=== PATIENT | male | born 1985 | race Caucasian/White ===

== ENCOUNTER 2019-07-05 05:17 | Observation (INO) | payer BC ==
[2019-07-05] MEDS ORDERED: Sodium Chloride 0.9% 1,000 ML IV ONE ×2 (05:27→06:08)
[2019-07-05] MEDS ORDERED: Ketorolac 30 MG/ML SDV IVPUSH ONE (05:27)
--- NOTE | 2019-07-05 06:01 | CR ---
Indication: Shortness of breath Technique: Chest 2 views Comparison: None Findings: Cardiovascular and mediastinum: Heart size and vasculature are normal in caliber and appearance. Lungs and pleural spaces: No pleural effusion or pneumothorax. Patchy left lower lobe opacities. Bones and soft tissues: No significant findings. Impression: Patchy opacities in the left lower lobe suspicious for pneumonia. Dictated by Moise Davis MD @ Jul 05 2019 5:59AM Signed by Dr. Moise Davis @ Jul 05 2019 6:00AM
[2019-07-05 06:06] LABS: BLOOD UREA NITROGEN,BUN 12 mg/dL (7.0-18.0); CHLORIDE,CL 101 mmol/L (98-107); GLUCOSE RANDOM 137 mg/dL (74-106); LIPASE 204 U/L (73-393); POTASSIUM,K 3.6 mmol/L (3.5-5.1); SODIUM,NA 136 mmol/L (136-148)
[2019-07-05] MEDS ORDERED: cefTRIAXone 1 GM in Premix Bag 1 BAG IV ONE (06:09)
[2019-07-05] MEDS ORDERED: Azithromycin 500 MG in Sodium Chloride 0.9% 250 ML IV SCH (06:15)
[2019-07-05] MEDS ORDERED: Acetaminophen 500 MG Tab PO ONE (06:27)
--- NOTE | 2019-07-05 06:49 | EDM.PDOC ---
ED HPI GENERAL MEDICAL PROBLEM - General Chief Complaint: Respiratory Problem Stated Complaint: HARD TIME BREATHING Time Seen by Provider: 07/05/19 06:49 - History of Present Illness INITIAL COMMENTS - FREE TEXT/NARRATIVE: HPI 33-year-old male presents for evaluation of one half day of fever, chills, left sided chest discomfort, and a cough. Patient believes several days prior he had the flu as he had approximately one half days of muscle aches, fevers and chills over self limited. Patient drinks 3-4 12 ounce drinks of hard alcohol with Coke daily. Denies any prior withdraw symptoms. Takes no medications. No history of DVT, PE, estrogen usage, coughing up blood, calf tenderness, swelling , surgery, or immobilization. No recent travel, no rashes, tick bites, drinking unpurified water, no diarrhea, no dysuria, no urinary frequency, no headache, neck stiffness. M/S/F/SocHx notable for: please see HPI; remainder reviewed with patient and in chart. ROS: Negative constitutional, eye, cardiovascular, pulmonary, GI, , MSK, skin , neurologic, psychiatric, endocrine unless noted in the HPI. Exam HR 112, RR 18, BP 140/74, T 39.0C, SaO2 95% on room air. Gen: appears given age, appears moderately uncomfortable, not in extremis. HEENT: NC, AT, PEERL, EOMI, neck supple, no goiter appreciated. Resp: Clear to auscultation bilaterally, normal work of breathing, no accessory muscle usage. Card: Regular rate and rhythm with no murmurs, rubs, or gallops, extremities warm and well perfused. GI: Non-tender to palpation throughout all quadrants, no focal tenderness at McBurney's point, negative Rodriguez's sign, non-distended, no rebound or guarding. : No suprapubic tenderness to palpation. MSK: No visible deformities, strength and tone without visually appreciable deficit. Skin: Normal color, no petechiae. Neuro: alert and oriented 3, no facial asymmetry, vision and hearing WNL. Neck supple, negative Kernigs, no C, T, L spine tenderness palpation. Psych: Mood and affect appropriate. Labs / Imaging (pertinent): WBC 6.21, 83.3 neutrophils, 11.8 lymphocytes, Hb 16.2, PLT 152, Na 136, K 3.6, Bilirubin 0.7, Lactate 2.0, troponin < 0.050, lipase 204. UA: negative bacteria, negative nitrites, negative leukocyte esterase, 0 squamous epithelial cells. CXR: No acute cardiopulmonary disease process. No focal infiltrate, cardiomegaly , rib fractures, or mediastinal widening, lung markings extend to the periphery bilaterally and there are no deep sulci. Radiologist's read pending. EKG: SR at [address]-segment elevations or depressions, T-wave inversions or new LBBB. Influenza A & B negative. MDM Previous chart, nursing note, labs, imaging, and vitals reviewed. A: 33-year-old male presents for evaluation of one half day of fever, chills, left sided chest discomfort, and a cough. Evaluation: patient meets CMS screening guidelines with T >38.0C, HR >90, and a suspected pulmonary source. Infectious Source: * Pulmonary: left lower lobe infiltrate, patient with cough, pain in the affected area, and no features to suggest PE, as such suspect pneumonia. * Urine: pending, however there are no features on history or exam to suggest UTI/pyelonephritis. * Skin: Consider a cutaneous source unlikely given absence of significant infection appreciated on exam. 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 * Abdomen: Doubt given the non-tender abdomen and an alternate source. * Spine: Given the absence of back pain and an alternate source further investigation for possible epidural abscess, spinal osteomyelitis, or discitis are not currently warranted. * Lines: Patient without indwelling lines/ports. Resuscitation: * Blood cultures, 30 cc/kg NS fluid bolus, and ceftriaxone and azithromycin ordered. Disposition: admitted for further care. Impression: pneumonia, sepsis. 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 Time: 30 minutes were spent directly related to patient care exclusive of separately billed procedures The patient is also without evidence of pancreatitis (lipase within clinically acceptable limits), adrenal insufficiency is tentatively considered unlikely as there is no evidence of chronic steroid use, no known adrenal insufficiency and the patient has been without refractory hypotension. Thyroid disease was considered, given the absence of known thyroid disease or goiter on exam, and a tentatively explaining etiology for the patients presentation further investigation is not currently indicated. Ingestion/OD are felt to be unlikely given history, absence of significant mydriasis, and lack of appreciated clonus or hyperreflexia, as well as an alternate explaining etiology.The possibility of alcohol, benzodiazepine, opiate withdrawal were considered and while history is limited at this point these do not appear to be contributing, however, the patient does report significant daily alcohol use, this will likely require monitoring. L chest Pain Score (Numeric/FACES): 8 - Related Data Allergies Allergy/AdvReac Type Severity Reaction Status Date / Time No Known Allergies Allergy Verified 07/05/19 05:25 Home Meds: Home Meds . [No Known Home Meds] 07/05/19 [History] Past Medical History - Past Health History Medical/Surgical History: Denies Medical/Surgical History - Infectious Disease History Infectious Disease History: Reports: Chicken Pox Social & Family History - Tobacco Use Smoking Status *Q: Former Smoker Used Tobacco, but Quit: Yes Month/Year Tobacco Last Used: 05/2018 - Caffeine Use Caffeine Use: Reports: Coffee - Alcohol Use Days Per Week of Alcohol Use: 7 Number of Drinks Per Day: 4 Total Drinks Per Week: 28 - Recreational Drug Use Recreational Drug Use: No ED ROS GENERAL - Review of Systems Review Of Systems: See Below ED EXAM, GENERAL - Physical Exam Exam: See Below Course - Vital Signs Last Recorded V/S: Last Vital Signs Temp 38.5 C H 07/05/19 06:24 Pulse 100 07/05/19 06:24 Resp 16 07/05/19 06:24 BP 127/64 07/05/19 06:24 Pulse Ox 92 L 07/05/19 06:24 - Orders/Labs/Meds Orders: Active Orders 24 hr Category Date Time Status EKG 12 Lead [EKG Documentation Completion] [RC] STAT Care 07/05/19 05:38 Active CULTURE BLOOD [BC] Stat Lab 07/05/19 05:25 Received CULTURE BLOOD [BC] Stat Lab 07/05/19 06:35 Received UA W/SUMANTH RFLX IF INDICATED [URIN] Stat Lab 07/05/19 05:27 Ordered Azithromycin [Zithromax] 500 mg Med 07/05/19 06:15 Active Sodium Chloride 0.9% [Normal Saline (AdvBag)] 250 ml IV ONETIME Sodium Chloride 0.9% [Normal Saline] 1,000 ml Med 07/05/19 06:08 Active IV .Bolus Sodium Chloride 0.9% [Normal Saline] 1,250 ml Med 07/05/19 06:30 Active IV ASDIRECTED Blood Culture x2 Reflex Set [OM.PC] Stat Oth 07/05/19 05:26 Ordered Medication Orders Azithromycin 500 mg/ Sodium (Chloride) 250 mls @ 250 mls/hr IV ONETIME MARIPOSA Sodium Chloride (Normal Saline) 1,000 mls @ 1,000 mls/hr IV .Bolus ONE Stop: 07/05/19 07:07 Sodium Chloride (Normal Saline) 1,250 mls @ 500 mls/hr IV ASDIRECTED MARIPOSA Labs: Laboratory Tests 07/05/19 07/05/19 07/05/19 Range/Units 05:25 05:25 05:25 WBC 6.21 (4.0-11.0) K/uL RBC 5.31 (4.50-5.90) M/uL Hgb 16.2 (13.0-17.0) g/dL Hct 44.7 (38.0-50.0) % MCV 84.2 (80.0-98.0) fL MCH 30.5 (27.0-32.0) pg MCHC 36.2 (31.0-37.0) g/dL RDW Std Deviation 36.6 (28.0-62.0) fl RDW Coeff of Briana 12 (11.0-15.0) % Plt Count 152 (150-400) K/uL MPV 9.70 (7.40-12.00) fL Neut % (Auto) 83.3 H (48.0-80.0) % Lymph % (Auto) 11.8 L (16.0-40.0) % Coffee % (Auto) 4.2 (0.0-15.0) % Eos % (Auto) 0.5 (0.0-7.0) % Baso % (Auto) 0.2 (0.0-1.5) % Neut # (Auto) 5.2 (1.4-5.7) K/uL Lymph # (Auto) 0.7 (0.6-2.4) K/uL [place] # (Auto) 0.3 (0.0-0.8) K/uL Eos # (Auto) 0.0 (0.0-0.7) K/uL Baso # (Auto) 0.0 (0.0-0.1) K/uL Nucleated RBC % 0.0 /100WBC Nucleated RBCs # 0 K/uL Lactate 2.0 (0.20-2.00) mmol/L Sodium 136 (136-148) mmol/L Potassium 3.6 (3.5-5.1) mmol/L Chloride 101 (98-107) mmol/L Carbon Dioxide 23.0 (21.0-32.0) mmol/L BUN 12 (7.0-18.0) mg/dL Creatinine 1.1 (0.8-1.3) mg/dL Est Cr Clr Drug Dosing 105.82 mL/min Estimated GFR (MDRD) > 60.0 ml/min Glucose 137 H (74-106) mg/dL Calcium 8.9 (8.5-10.1) mg/dL Total Bilirubin 0.7 (0.2-1.0) mg/dL AST 53 H (15-37) IU/L ALT 96 H (14-63) IU/L Alkaline Phosphatase 71 (46-116) U/L Troponin I < 0.050 (0.000-0.056) ng/mL Total Protein 7.9 (6.4-8.2) g/dL Albumin 4.0 (3.4-5.0) g/dL Globulin 3.9 (2.6-4.0) g/dL Albumin/Globulin Ratio 1.0 (0.9-1.6) Lipase 204 (73-393) U/L Meds: Medications Generic Name Dose Route Start Last Admin Trade Name Freq PRN Reason Stop Dose Admin Azithromycin 500 mg/ Sodium 250 mls @ 250 mls/hr 07/05/19 06:15 Chloride IV ONETIME MARIPOSA Sodium Chloride 1,000 mls @ 1,000 mls/hr 07/05/19 06:08 Normal Saline IV 07/05/19 07:07 .Bolus ONE Sodium Chloride 1,250 mls @ 500 mls/hr 07/05/19 06:30 Normal Saline IV ASDIRECTED MARIPOSA Discontinued Medications Generic Name Dose Route Start Last Admin Trade Name Christie PRN Reason Stop Dose Admin Acetaminophen 1,000 mg 07/05/19 06:27 Tylenol Extra Strength PO 07/05/19 06:28 ONETIME ONE Sodium Chloride 1,000 mls @ 1,000 mls/hr 07/05/19 05:27 07/05/19 05:37 Normal Saline IV 07/05/19 06:26 1,000 mls/hr .Bolus ONE Administration Ceftriaxone Sodium/Dextrose 1 50 mls @ 100 mls/hr 07/05/19 06:09 07/05/19 06: 23 gm/ Premix IV 07/05/19 06:38 100 mls/hr ONETIME ONE Administration Ketorolac Tromethamine 30 mg 07/05/19 05:27 07/05/19 05:37 Toradol IVPUSH 07/05/19 05:28 30 mg ONETIME ONE Administration Departure - Departure Time of Disposition: 06:48 Disposition: Admitted As Inpatient 67 Clinical Impression: Pneumonia, Sepsis - Discharge Information Referrals: PCP,None [Primary Care Provider] - Sepsis Event Note - Evaluation Sepsis Screening Result: Possible Sepsis Risk - Focused Exam Vital Signs: Vital Signs Temp Pulse Resp BP Pulse Ox 07/05/19 06:24 38.5 C H 100 16 127/64 92 L 07/05/19 05:22 39.0 C H 112 H 18 140/74 95 Date Exam was Performed: 07/05/19 Time Exam was Performed: 06:45 - My Orders Last 24 Hours: My Active Orders 07/05/19 05:25 CULTURE BLOOD [BC] Stat 07/05/19 05:26 Blood Culture x2 Reflex Set [OM.PC] Stat 07/05/19 05:27 UA W/SUMANTH RFLX IF INDICATED [URIN] Stat 07/05/19 05:38 EKG 12 Lead [EKG Documentation Completion] [RC] STAT 07/05/19 06:08 Sodium Chloride 0.9% [Normal Saline] 1,000 ml IV .Bolus 07/05/19 06:15 Azithromycin [Zithromax] 500 mg Sodium Chloride 0.9% [Normal Saline (AdvBag)] 250 ml IV ONETIME 07/05/19 06:30 Sodium Chloride 0.9% [Normal Saline] 1,250 ml IV ASDIRECTED 07/05/19 06:35 CULTURE BLOOD [BC] Stat - Assessment/Plan Last 24 Hours: My Active Orders 07/05/19 05:25 CULTURE BLOOD [BC] Stat 07/05/19 05:26 Blood Culture x2 Reflex Set [OM.PC] Stat 07/05/19 05:27 UA W/SUMANTH RFLX IF INDICATED [URIN] Stat 07/05/19 05:38 EKG 12 Lead [EKG Documentation Completion] [RC] STAT 07/05/19 06:08 Sodium Chloride 0.9% [Normal Saline] 1,000 ml IV .Bolus 07/05/19 06:15 Azithromycin [Zithromax] 500 mg Sodium Chloride 0.9% [Normal Saline (AdvBag)] 250 ml IV ONETIME 07/05/19 06:30 Sodium Chloride 0.9% [Normal Saline] 1,250 ml IV ASDIRECTED 07/05/19 06:35 CULTURE BLOOD [BC] Stat
[2019-07-05] MEDS ORDERED: Acetaminophen 325 MG Tab PO PRN (08:15)
[2019-07-05] MEDS ORDERED: Ibuprofen 600 MG Tab PO PRN (08:17)
[2019-07-05] MEDS ORDERED: Ondansetron 4 MG/2 ML SDV IVPUSH PRN (08:17)
[2019-07-05] MEDS ORDERED: Ondansetron 4 MG Tab.DIS PO PRN (08:17)
[2019-07-05] MEDS ORDERED: Albuterol 0.083% 2.5 MG/3 ML Neb Soln NEB PRN (08:17)
[2019-07-05] MEDS ORDERED: LORazepam 2 MG/ML SDV IVPUSH PRN (08:30)
--- NOTE | 2019-07-05 08:31 | PCM.HP.2 ---
H&P History of Present Illness - General Date of Service: 07/05/19 Admit Problem/Dx: Admission Diagnosis/Problem Admission Diagnosis/Problem Pneumonia - History of Present Illness Initial Comments - Free Text/Narative: 33 y/o male with history of alcohol abuse who presented to the ER complaining of cough, pleuritic chest pain, fevers. Patient states that he started having myalgias, fatigue 3-4 days ago. He did get his Flu shot this season. States that he is feeling short of breath, feverish, cough. No other sick contacts. He does drink 2-3 hard liquor bottles per day. Denies any alcohol withdrawal seizures. In the ER, he was given 2 L NS, tylenol, ceftriaxone. Chest xray showed Left lower lung pneumonia. L chest Pain Score (Numeric/FACES): 8 - Related Data Allergies/Adverse Reactions: Allergies Allergy/AdvReac Type Severity Reaction Status Date / Time No Known Allergies Allergy Verified 07/05/19 05:25 Home Medications: Home Meds . [No Known Home Meds] 07/05/19 [History] Past Medical History - Past Health History Medical/Surgical History: Denies Medical/Surgical History - Infectious Disease History Infectious Disease History: Reports: Chicken Pox Social & Family History - Tobacco Use Smoking Status *Q: Former Smoker Used Tobacco, but Quit: Yes Month/Year Tobacco Last Used: 05/2018 - Caffeine Use Caffeine Use: Reports: Coffee - Alcohol Use Days Per Week of Alcohol Use: 7 Number of Drinks Per Day: 4 Total Drinks Per Week: 28 - Recreational Drug Use Recreational Drug Use: No H&P Review of Systems - Review of Systems: Review Of Systems: Comprehensive ROS is negative, except as noted in HPI. Exam - Exam Exam: See Below - Vital Signs Vital Signs: Last Vital Signs Temp 38.4 C H 07/05/19 07:06 Pulse 100 07/05/19 06:24 Resp 16 07/05/19 06:24 BP 127/64 07/05/19 06:24 Pulse Ox 92 L 07/05/19 06:24 Weight: 104.3 kg - Exam General: Alert, Oriented, Cooperative HEENT: Conjunctiva Clear, Pupils Equal Lungs: Clear to Auscultation, Normal Respiratory Effort, Other (left basal crackles. no wheezing.) Cardiovascular: Regular Rate, Regular Rhythm GI/Abdominal Exam: Normal Bowel Sounds, Soft, Non-Tender Back Exam: Normal Inspection Extremities: Normal Inspection, No Pedal Edema Skin: Warm, Dry - Patient Data Lab Results Last 24 hrs: Laboratory Results - last 24 hr 07/05/19 07/05/19 07/05/19 Range/Units 05:25 05:25 05:25 WBC 6.21 (4.0-11.0) K/uL RBC 5.31 (4.50-5.90) M/uL Hgb 16.2 (13.0-17.0) g/dL Hct 44.7 (38.0-50.0) % MCV 84.2 (80.0-98.0) fL MCH 30.5 (27.0-32.0) pg MCHC 36.2 (31.0-37.0) g/dL RDW Std Deviation 36.6 (28.0-62.0) fl RDW Coeff of Briana 12 (11.0-15.0) % Plt Count 152 (150-400) K/uL MPV 9.70 (7.40-12.00) fL Neut % (Auto) 83.3 H (48.0-80.0) % Lymph % (Auto) 11.8 L (16.0-40.0) % [place] % (Auto) 4.2 (0.0-15.0) % Eos % (Auto) 0.5 (0.0-7.0) % Baso % (Auto) 0.2 (0.0-1.5) % Neut # (Auto) 5.2 (1.4-5.7) K/uL Lymph # (Auto) 0.7 (0.6-2.4) K/uL [place] # (Auto) 0.3 (0.0-0.8) K/uL Eos # (Auto) 0.0 (0.0-0.7) K/uL Baso # (Auto) 0.0 (0.0-0.1) K/uL Nucleated RBC % 0.0 /100WBC Nucleated RBCs # 0 K/uL Lactate 2.0 (0.20-2.00) mmol/L Sodium 136 (136-148) mmol/L Potassium 3.6 (3.5-5.1) mmol/L Chloride 101 (98-107) mmol/L Carbon Dioxide 23.0 (21.0-32.0) mmol/L BUN 12 (7.0-18.0) mg/dL Creatinine 1.1 (0.8-1.3) mg/dL Est Cr Clr Drug Dosing 105.82 mL/min Estimated GFR (MDRD) > 60.0 ml/min Glucose 137 H (74-106) mg/dL Calcium 8.9 (8.5-10.1) mg/dL Total Bilirubin 0.7 (0.2-1.0) mg/dL AST 53 H (15-37) IU/L ALT 96 H (14-63) IU/L Alkaline Phosphatase 71 (46-116) U/L Troponin I < 0.050 (0.000-0.056) ng/mL Total Protein 7.9 (6.4-8.2) g/dL Albumin 4.0 (3.4-5.0) g/dL Globulin 3.9 (2.6-4.0) g/dL Albumin/Globulin Ratio 1.0 (0.9-1.6) Lipase 204 (73-393) U/L Result Diagrams: 07/05/19 05:25 07/05/19 05:25 Oz Results Last 24 hrs: Microbiology 07/05/19 05:30 Influenza Type A Antigen Screen - Final Nasopharyngeal Swab NEGATIVE INFLUENZA A VIRUS AG REFERENCE RANGE: NEGATIVE Influenza Type B Antigen Screen - Final NEGATIVE INFLUENZA B VIRUS AG REFERENCE RANGE: NEGATIVE Sepsis Event Note - Evaluation Sepsis Screening Result: Possible Sepsis Risk - Focused Exam Vital Signs: Vital Signs Temp Temp Pulse Resp BP Pulse Ox 07/05/19 07:06 38.4 C H 07/05/19 06:24 38.5 C H 100 16 127/64 92 L 07/05/19 05:22 39.0 C H 112 H 18 140/74 95 Date Exam was Performed: 07/05/19 Time Exam was Performed: 14:06 Problem List Initiated/Reviewed/Updated: Yes Orders Last 24hrs: Active Orders 24 hr Category Date Time Status Patient Status [ADT] Stat ADT 07/05/19 06:49 Active CIWAA Assessment [RC] Q4H Care 07/05/19 08:29 Active EKG 12 Lead [EKG Documentation Completion] [RC] STAT Care 07/05/19 05:38 Active Intake and Output [RC] QSHIFT Care 07/05/19 08:15 Active Oxygen Therapy [RC] PRN Care 07/05/19 08:15 Active RT Aerosol Therapy [RC] ASDIRECTED Care 07/05/19 08:18 Active Up ad Nell [RC] ASDIRECTED Care 07/05/19 08:15 Active VTE/DVT Education [RC] PER UNIT ROUTINE Care 07/05/19 08:15 Active Vital Signs [RC] Q4H Care 07/05/19 08:15 Active Regular Diet [DIET] Diet 07/05/19 Breakfast Active CULTURE BLOOD [BC] Stat Lab 07/05/19 05:25 Received CULTURE BLOOD [BC] Stat Lab 07/05/19 06:35 Received UA W/OZ RFLX IF INDICATED [URIN] Stat Lab 07/05/19 05:27 Ordered Acetaminophen [Tylenol] Med 07/05/19 08:15 Active 650 mg PO Q4H PRN Albuterol [Proventil Neb Soln] Med 07/05/19 08:17 Active 2.5 mg NEB Q2H PRN Azithromycin [Zithromax] 500 mg Med 07/05/19 09:00 Active Sodium Chloride 0.9% [Normal Saline (AdvBag)] 250 ml IV DAILY Azithromycin [Zithromax] 500 mg Med 07/05/19 06:15 Active Sodium Chloride 0.9% [Normal Saline (AdvBag)] 250 ml IV ONETIME Benzonatate [Tessalon Perles] Med 07/05/19 14:00 Active 200 mg PO TID Enoxaparin [Lovenox] Med 07/05/19 08:15 Active 40 mg SUBCUT Q24H Folic Acid Med 07/05/19 08:31 Active 1 mg PO DAILY Ibuprofen [Motrin] Med 07/05/19 08:17 Active 600 mg PO Q6H PRN LORazepam [Ativan] Med 07/05/19 08:30 Ordered See Protocol IVPUSH Q4H PRN Ondansetron [Zofran ODT] Med 07/05/19 08:17 Active 4 mg PO Q4H PRN Ondansetron [Zofran] Med 07/05/19 08:17 Active 4 mg IVPUSH Q4H PRN Sodium Chloride 0.9% [Normal Saline] 1,000 ml Med 07/05/19 08:30 Active IV STAT Thiamine [Vitamin B-1] Med 07/05/19 08:31 Ordered 100 mg PO DAILY cefTRIAXone [Rocephin in Dextrose,Iso-Osm 1 GM/50 ML] 1 Med 07/06/19 09:00 Active gm Premix Bag 1 bag IV Q24H Blood Culture x2 Reflex Set [OM.PC] Stat Oth 07/05/19 05:26 Ordered Resuscitation Status Routine Resus Stat 07/05/19 08:15 Ordered Medication Orders Acetaminophen (Tylenol) 650 mg PO Q4H PRN PRN Reason: Pain (Mild 1-3)/fever Albuterol (Proventil Neb Soln) 2.5 mg NEB Q2H PRN PRN Reason: Shortness Of Breath/wheezing Benzonatate (Tessalon Perles) 200 mg PO TID MARIPOSA Enoxaparin Sodium (Lovenox) 40 mg SUBCUT Q24H MAR[facility]OSA Folic Acid (Folic Acid) 1 mg PO DAILY [facility] Azithromycin 500 mg/ Sodium (Chloride) 250 mls @ 250 mls/hr IV ONETIME MARIPOSA Last Admin: 07/05/19 07:08 Dose: 250 mls/hr Azithromycin 500 mg/ Sodium (Chloride) 250 mls @ 250 mls/hr IV DAILY MARIPOSA Ceftriaxone Sodium/Dextrose 1 (gm/ Premix) 50 mls @ 100 mls/hr IV Q24H MARIPOSA Sodium Chloride (Normal Saline) 1,000 mls @ 150 mls/hr IV STAT MARIPOSA Stop: 07/06/19 15:09 Ibuprofen (Motrin) 600 mg PO Q6H PRN PRN Reason: Pain (mild 1-3) Ondansetron HCl (Zofran Odt) 4 mg PO Q4H PRN PRN Reason: nausea, able to take PO Ondansetron HCl (Zofran) 4 mg IVPUSH Q4H PRN PRN Reason: Nausea Thiamine HCl (Vitamin B-1) 100 mg PO DAILY [facility] Assessment/Plan Comment:: A: 1. Community acquired pneumonia 2. Mildly elevated liver enzymes 3. Alcohol abuse P: 1. CAP- continue ceftriaxone and azithromycin. Tessalon perles for cough. Incentive spirometry. Albuterol neb PRN for dyspnea. 2. Alcohol abuse- start folic acid and thiamine. CIWA assessment and Ativan PRN for alcohol withdrawal symptoms. 3. Mildly elevated liver enzymes, due to above. Will continue to trend. If still going up, will order RUQ US. Dispo: 1-2 days.
[2019-07-05] MEDS: Sodium Chloride 0.9% 1,000 ML IV SCH ×2 (08:35→16:19)
[2019-07-05] MEDS: Thiamine 100 MG Tab PO SCH ×2 (08:36→09:00)
[2019-07-05] MEDS: Folic Acid 1 MG Tab PO SCH ×2 (08:36→09:00)
[2019-07-05] MEDS: Enoxaparin 40 MG/0.4 ML Syringe SUBCUT SCH (08:37)
[2019-07-05] MEDS: Azithromycin 500 MG in Sodium Chloride 0.9% 250 ML IV SCH (08:41)
[2019-07-05] MEDS: Benzonatate 100 MG Cap PO SCH ×2 (14:12→22:07)
[2019-07-05 15:02] LABS: HEMOGLOBIN A1C 5.2 % (4.5-6.2)
[2019-07-06 05:58] LABS: BLOOD UREA NITROGEN,BUN 9 mg/dL (7.0-18.0); CHLORIDE,CL 108 mmol/L (98-107); GLUCOSE RANDOM 105 mg/dL (74-106); POTASSIUM,K 4.1 mmol/L (3.5-5.1); SODIUM,NA 144 mmol/L (136-148)
[2019-07-06] MEDS: Benzonatate 100 MG Cap PO SCH (06:36)
--- NOTE | 2019-07-06 08:39 | PCM.DCSUM1 ---
<Joshua De Dios - Last Filed: 07/06/19 10:58> Discharge Summary - Hospital Course Free Text/Narrative:: 33 yo male who presented to the ER complaining of cough, dyspnea. Admitted for community acquired pneumonia. Chest xray showed left lower lung infiltrate. He was started on Ceftriaxone and azithromycin. He was started on some maintenance fluids. He had a couple episodes of mild fevers which were treated with Tylenol. At time of discharge, patient was breathing room air, feeling better. No fevers. He was tolerating oral intake. He was prescribed Augmentin and azithromycin for 5 additional days. In addition, he was instructed to follow-up with his PCP. - Discharge Data Discharge Date: 07/06/19 Discharge Disposition: Home, Self-Care 01 Condition: Fair - Referral to Home Health Primary Care Physician: PCP None - Patient Instructions Diet: Regular Diet as Tolerated, No Alcoholic Beverages Activity: As Tolerated Notify Provider of: Fever, Increased Pain, Drainage, Nausea and/or Vomiting - Discharge Plan *PRESCRIPTION DRUG MONITORING PROGRAM REVIEWED*: Not Applicable *COPY OF PRESCRIPTION DRUG MONITORING REPORT IN PATIENT ANIRUDH: Not Applicable Prescriptions/Med Rec: Amoxicillin/Clavulanate K [Augmentin 875-125 MG] 1 tab PO Q12H 5 Days #10 tablet Azithromycin 250 mg PO DAILY 5 Days #5 tablet Benzonatate [Tessalon Perle] 100 mg PO TID PRN #30 capsule PRN Reason: Cough Home Medications: Home Meds Amoxicillin/Clavulanate K [Augmentin 875-125 MG] 1 tab PO Q12H 5 Days #10 tablet 07/06/19 [Rx] Azithromycin 250 mg PO DAILY 5 Days #5 tablet 07/06/19 [Rx] Benzonatate [Tessalon Perle] 100 mg PO TID PRN #30 capsule 07/06/19 [Rx] Patient Handouts: Amoxicillin capsules or tablets, Azithromycin tablets, Benzonatate capsules, Community-Acquired Pneumonia, Adult, [id number] Referrals: [facility] [Outside] Joshua De Dios MD [Resident] - 07/20/19 2:00 pm - Discharge Summary/Plan Comment DC Time >30 min.: No - Patient Data Vitals - Most Recent: Last Vital Signs Temp 36.4 C 07/06/19 08:00 Pulse 120 H 07/06/19 08:00 Resp 18 07/06/19 08:00 BP 138/86 07/06/19 08:00 Pulse Ox 95 07/06/19 08:00 Weight - Most Recent: 104.3 kg I&O - Last 24 hours: Intake & Output 07/05/19 07/06/19 07/06/19 22:59 06:59 14:59 Intake Total 5097 2814 Output Total 7781 0460 Balance 3292 464 Lab Results - Last 24 hrs: Laboratory Results - last 24 hr 07/05/19 07/05/19 07/06/19 Range/Units 05:25 08:45 05:33 WBC 11.19 H (4.0-11.0) K/uL RBC 4.75 (4.50-5.90) M/uL Hgb 14.6 (13.0-17.0) g/dL Hct 40.5 (38.0-50.0) % MCV 85.3 (80.0-98.0) fL MCH 30.7 (27.0-32.0) pg MCHC 36.0 (31.0-37.0) g/dL RDW Std Deviation 37.8 (28.0-62.0) fl RDW Coeff of Briana 12 (11.0-15.0) % Plt Count 147 L (150-400) K/uL MPV 9.60 (7.40-12.00) fL Neut % (Auto) 79.9 (48.0-80.0) % Lymph % (Auto) 13.8 L (16.0-40.0) % [place] % (Auto) 5.9 (0.0-15.0) % Eos % (Auto) 0.3 (0.0-7.0) % Baso % (Auto) 0.1 (0.0-1.5) % Neut # (Auto) 9.0 H (1.4-5.7) K/uL Lymph # (Auto) 1.5 (0.6-2.4) K/uL [place] # (Auto) 0.7 (0.0-0.8) K/uL Eos # (Auto) 0.0 (0.0-0.7) K/uL Baso # (Auto) 0.0 (0.0-0.1) K/uL Nucleated RBC % 0.0 /100WBC Nucleated RBCs # 0 K/uL Sodium (136-148) mmol/L Potassium (3.5-5.1) mmol/L Chloride (98-107) mmol/L Carbon Dioxide (21.0-32.0) mmol/L BUN (7.0-18.0) mg/dL Creatinine (0.8-1.3) mg/dL Est Cr Clr Drug Dosing mL/min Estimated GFR (MDRD) ml/min Glucose (74-106) mg/dL Hemoglobin A1c 5.2 (4.5-6.2) % Calcium (8.5-10.1) mg/dL Total Bilirubin (0.2-1.0) mg/dL AST (15-37) IU/L ALT (14-63) IU/L Alkaline Phosphatase (46-116) U/L Total Protein (6.4-8.2) g/dL Albumin (3.4-5.0) g/dL Globulin (2.6-4.0) g/dL Albumin/Globulin Ratio (0.9-1.6) Urine Color YELLOW Urine Appearance CLEAR Urine pH 6.0 (5.0-8.0) Ur Specific [place] 1.010 (1.001-1.035) Urine Protein NEGATIVE (NEGATIVE) mg/dL Urine Glucose (UA) NEGATIVE (NEGATIVE) mg/dL Urine Ketones NEGATIVE (NEGATIVE) mg/dL Urine Occult Blood NEGATIVE (NEGATIVE) Urine Nitrite NEGATIVE (NEGATIVE) Urine Bilirubin NEGATIVE (NEGATIVE) Urine Urobilinogen 0.2 (<2.0) EU/dL Ur Leukocyte Esterase NEGATIVE (NEGATIVE) 07/06/19 Range/Units 05:33 WBC (4.0-11.0) K/uL RBC (4.50-5.90) M/uL Hgb (13.0-17.0) g/dL Hct (38.0-50.0) % MCV (80.0-98.0) fL MCH (27.0-32.0) pg MCHC (31.0-37.0) g/dL RDW Std Deviation (28.0-62.0) fl RDW Coeff of Briana (11.0-15.0) % Plt Count (150-400) K/uL MPV (7.40-12.00) fL Neut % (Auto) (48.0-80.0) % Lymph % (Auto) (16.0-40.0) % [place] % (Auto) (0.0-15.0) % Eos % (Auto) (0.0-7.0) % Baso % (Auto) (0.0-1.5) % Neut # (Auto) (1.4-5.7) K/uL Lymph # (Auto) (0.6-2.4) K/uL [place] # (Auto) (0.0-0.8) K/uL Eos # (Auto) (0.0-0.7) K/uL Baso # (Auto) (0.0-0.1) K/uL Nucleated RBC % /100WBC Nucleated RBCs # K/uL Sodium 144 (136-148) mmol/L Potassium 4.1 (3.5-5.1) mmol/L Chloride 108 H (98-107) mmol/L Carbon Dioxide 26.0 (21.0-32.0) mmol/L BUN 9 (7.0-18.0) mg/dL Creatinine 1.1 (0.8-1.3) mg/dL Est Cr Clr Drug Dosing 105.82 mL/min Estimated GFR (MDRD) > 60.0 ml/min Glucose 105 (74-106) mg/dL Hemoglobin A1c (4.5-6.2) % Calcium 8.1 L (8.5-10.1) mg/dL Total Bilirubin 1.6 H (0.2-1.0) mg/dL AST 23 (15-37) IU/L ALT 61 (14-63) IU/L Alkaline Phosphatase 47 (46-116) U/L Total Protein 6.6 (6.4-8.2) g/dL Albumin 3.1 L (3.4-5.0) g/dL Globulin 3.5 (2.6-4.0) g/dL Albumin/Globulin Ratio 0.9 (0.9-1.6) Urine Color Urine Appearance Urine pH (5.0-8.0) Ur Specific [place] (1.001-1.035) Urine Protein (NEGATIVE) mg/dL Urine Glucose (UA) (NEGATIVE) mg/dL Urine Ketones (NEGATIVE) mg/dL Urine Occult Blood (NEGATIVE) Urine Nitrite (NEGATIVE) Urine Bilirubin (NEGATIVE) Urine Urobilinogen (<2.0) EU/dL Ur Leukocyte Esterase (NEGATIVE) [facility]AN[facility] Results - Last 24 hrs: Microbiology 07/05/19 06:35 Aerobic Blood Culture - Preliminary Blood - Venous - Lab Draw NO GROWTH AFTER 1 DAY Anaerobic Blood Culture - Preliminary NO GROWTH AFTER 1 DAY 07/05/19 05:25 Aerobic Blood Culture - Preliminary Blood - Venous NO GROWTH AFTER 1 DAY Anaerobic Blood Culture - Preliminary NO GROWTH AFTER 1 DAY 07/05/19 05:30 Influenza Type A Antigen Screen - Final Nasopharyngeal Swab NEGATIVE INFLUENZA A VIRUS AG REFERENCE RANGE: NEGATIVE Influenza Type B Antigen Screen - Final NEGATIVE INFLUENZA B VIRUS AG REFERENCE RANGE: NEGATIVE Med Orders - Current: Current Medications Acetaminophen (Tylenol) 650 mg PO Q4H PRN PRN Reason: Pain (Mild 1-3)/fever Albuterol (Proventil Neb Soln) 2.5 mg NEB Q2H PRN PRN Reason: Shortness Of Breath/wheezing Last Admin: 07/05/19 14:59 Dose: 2.5 mg Benzonatate (Tessalon Perles) 200 mg PO TID [facility] Last Admin: 07/06/19 06:36 Dose: 200 mg Enoxaparin Sodium (Lovenox) 40 mg SUBCUT Q24H [facility] Last Admin: 07/05/19 08:37 Dose: 40 mg Folic Acid (Folic Acid) 1 mg PO DAILY [facility] Last Admin: 07/05/19 09:00 Dose: Not Given Azithromycin 500 mg/ Sodium (Chloride) 250 mls @ 250 mls/hr IV DAILY [facility] Last Admin: 07/05/19 08:41 Dose: Not Given Ceftriaxone Sodium/Dextrose 1 (gm/ Premix) 50 mls @ 100 mls/hr IV Q24H [facility] Sodium Chloride (Normal Saline) 1,000 mls @ 150 mls/hr IV STAT [facility] Stop: 07/06/19 15:09 Last Admin: 07/05/19 16:19 Dose: 150 mls/hr Ibuprofen (Motrin) 600 mg PO Q6H PRN PRN Reason: Pain (mild 1-3) Last Admin: 07/05/19 19:51 Dose: 600 mg Lorazepam (Ativan) 0 mg IVPUSH Q4H PRN; Protocol PRN Reason: Withdrawal Symptoms Ondansetron HCl (Zofran Odt) 4 mg PO Q4H PRN PRN Reason: nausea, able to take PO Ondansetron HCl (Zofran) 4 mg IVPUSH Q4H PRN PRN Reason: Nausea Thiamine HCl (Vitamin B-1) 100 mg PO DAILY [facility] Last Admin: 07/05/19 09:00 Dose: Not Given Discontinued Medications Acetaminophen (Tylenol Extra Strength) 1,000 mg PO ONETIME ONE Stop: 07/05/19 06:28 Last Admin: 07/05/19 07:06 Dose: 1,000 mg Sodium Chloride (Normal Saline) 1,000 mls @ 1,000 mls/hr IV .Bolus ONE Stop: 07/05/19 06:26 Last Admin: 07/05/19 05:37 Dose: 1,000 mls/hr Azithromycin 500 mg/ Sodium (Chloride) 250 mls @ 250 mls/hr IV ONETIME [facility] Last Admin: 07/05/19 07:08 Dose: 250 mls/hr Ceftriaxone Sodium/Dextrose 1 (gm/ Premix) 50 mls @ 100 mls/hr IV ONETIME ONE Stop: 07/05/19 06:38 Last Admin: 07/05/19 06:23 Dose: 100 mls/hr Sodium Chloride (Normal Saline) 1,000 mls @ 1,000 mls/hr IV .Bolus ONE Stop: 07/05/19 07:07 Last Admin: 07/05/19 07:08 Dose: 1,000 mls/hr Sodium Chloride (Normal Saline) 1,250 mls @ 500 mls/hr IV ASDIRECTED [facility] Ketorolac Tromethamine (Toradol) 30 mg IVPUSH ONETIME ONE Stop: 07/05/19 05:28 Last Admin: 07/05/19 05:37 Dose: 30 mg <Loli Barfield - Last Filed: 07/16/19 12:14> Discharge Summary - Hospital Course Free Text/Narrative:: I have seen and evaluated the patient and agree with the residents note unless specified in my note - Referral to Home Health Primary Care Physician: PCP None - Patient Data Vitals - Most Recent: Last Vital Signs Temp 36.8 C 07/06/19 11:00 Pulse 91 07/06/19 11:00 Resp 17 07/06/19 11:00 BP 137/89 07/06/19 11:00 Pulse Ox 95 07/06/19 11:00 Med Orders - Current: Current Medications Discontinued Medications Acetaminophen (Tylenol Extra Strength) 1,000 mg PO ONETIME ONE Stop: 07/05/19 06:28 Last Admin: 07/05/19 07:06 Dose: 1,000 mg Acetaminophen (Tylenol) 650 mg PO Q4H PRN PRN Reason: Pain (Mild 1-3)/fever Albuterol (Proventil Neb Soln) 2.5 mg NEB Q2H PRN PRN Reason: Shortness Of Breath/wheezing Last Admin: 07/05/19 14:59 Dose: 2.5 mg Benzonatate (Tessalon Perles) 200 mg PO TID [facility] Last Admin: 07/06/19 06:36 Dose: 200 mg Enoxaparin Sodium (Lovenox) 40 mg SUBCUT Q24H [facility] Last Admin: 07/06/19 09:09 Dose: 40 mg Folic Acid (Folic Acid) 1 mg PO DAILY [facility] Last Admin: 07/06/19 09:06 Dose: 1 mg Sodium Chloride (Normal Saline) 1,000 mls @ 1,000 mls/hr IV .Bolus ONE Stop: 07/05/19 06:26 Last Admin: 07/05/19 05:37 Dose: 1,000 mls/hr Azithromycin 500 mg/ Sodium (Chloride) 250 mls @ 250 mls/hr IV ONETIME [facility] Last Admin: 07/05/19 07:08 Dose: 250 mls/hr Ceftriaxone Sodium/Dextrose 1 (gm/ Premix) 50 mls @ 100 mls/hr IV ONETIME ONE Stop: 07/05/19 06:38 Last Admin: 07/05/19 06:23 Dose: 100 mls/hr Sodium Chloride (Normal Saline) 1,000 mls @ 1,000 mls/hr IV .Bolus ONE Stop: 07/05/19 07:07 Last Admin: 07/05/19 07:08 Dose: 1,000 mls/hr Sodium Chloride (Normal Saline) 1,250 mls @ 500 mls/hr IV ASDIRECTED [facility] Azithromycin 500 mg/ Sodium (Chloride) 250 mls @ 250 mls/hr IV DAILY [facility] Last Admin: 07/06/19 09:56 Dose: 250 mls/hr Ceftriaxone Sodium/Dextrose 1 (gm/ Premix) 50 mls @ 100 mls/hr IV Q24H [facility] Last Admin: 07/06/19 08:59 Dose: 100 mls/hr Sodium Chloride (Normal Saline) 1,000 mls @ 150 mls/hr IV STAT [facility] Stop: 07/06/19 15:09 Last Admin: 07/05/19 16:19 Dose: 150 mls/hr Ibuprofen (Motrin) 600 mg PO Q6H PRN PRN Reason: Pain (mild 1-3) Last Admin: 07/05/19 19:51 Dose: 600 mg Ketorolac Tromethamine (Toradol) 30 mg IVPUSH ONETIME ONE Stop: 07/05/19 05:28 Last Admin: 07/05/19 05:37 Dose: 30 mg Lorazepam (Ativan) 0 mg IVPUSH Q4H PRN; Protocol PRN Reason: Withdrawal Symptoms Ondansetron HCl (Zofran Odt) 4 mg PO Q4H PRN PRN Reason: nausea, able to take PO Ondansetron HCl (Zofran) 4 mg IVPUSH Q4H PRN PRN Reason: Nausea Thiamine HCl (Vitamin B-1) 100 mg PO DAILY [facility] Last Admin: 07/06/19 09:01 Dose: 100 mg
[2019-07-06] MEDS ORDERED: cefTRIAXone 1 GM in Premix Bag 1 BAG IV SCH (09:00)
[2019-07-06] MEDS: Thiamine 100 MG Tab PO SCH (09:01)
[2019-07-06] MEDS: Folic Acid 1 MG Tab PO SCH (09:06)
[2019-07-06] MEDS: Enoxaparin 40 MG/0.4 ML Syringe SUBCUT SCH (09:09)
--- NOTE | 2019-07-06 09:54 | US ---
Limited abdominal ultrasound: Multiple real-time images of the upper right abdomen were obtained. Comparison: No prior abdominal imaging. Liver is echogenic in relation to the right kidney most likely due to fatty infiltration. No discrete focal abnormality is appreciated within the visualized liver. Right kidney shows no hydronephrosis or mass and has a length of 10.7 cm. Gallbladder contains no calcified gallstones. There is a focal fatty sparing seen next to the gallbladder. Pancreas is incompletely seen due to bowel gas. Visualized portions of the pancreas are within normal limits. Impression: 1. Probable fatty infiltration within the liver. 2. No additional abnormality is appreciated on right upper quadrant abdominal ultrasound. Diagnostic code #2 Study was dictated in [place] [employer]
[2019-07-06] MEDS: Azithromycin 500 MG in Sodium Chloride 0.9% 250 ML IV SCH (09:56)
== END 2019-07-06 11:37 | disposition home or self-care (01) ==
LOC: MW.ED 05:17 → MW.MS 06:49
PROVIDERS: ADMIT Student in an Organized Health Care Education/Training Program; ATTEND Student in an Organized Health Care Education/Training Program
DX: J18.9 Pneumonia, unspecified organism (principal); R94.5 Abnormal results of liver function studies; F10.10 Alcohol abuse, uncomplicated; Z87.891 Personal history of nicotine dependence
CPT/HCPCS: 36415; 71046; 76705; 80053; 81003; 83036; 83605; 83690; 84484; 85025; 87040; 87804; 93005; 94640; 96361; 96365; 96366; 96367; 96372; 96375; 99285; A9270; G0378; J0456; J0696; J1650; J1885; J7030; J7050; 99284